=== PATIENT | male | born 2000 | race Hispanic/Latino ===

== ENCOUNTER 2024-04-16 13:21 | Emergency (ER) | payer BC ==
[~2024-04-16] VITALS: Ht 172.7 cm; Wt 90.7 kg
[2024-04-16] MEDS: ONDANSETRON HCL INJ 2MG/ML 2ML 2 MG/ML VIAL IV STA (15:27)
[2024-04-16] MEDS: FAMOTIDINE 20 MG/2 ML VIAL IV STA (15:27)
[2024-04-16] MEDS: SODIUM CHLORIDE 0.9% 1000ML 1,000 ML IV SCH (15:28)
[2024-04-16] MEDS: KETOROLAC TROMETHAMINE 30 MG/ML VIAL IV STA (15:28)
[2024-04-16 15:37] VITALS: PULSE 55; RESP 18; TEMP 98.2; O2SAT 98
[2024-04-16] MEDS ORDERED: IOPAMIDOL 370 MG/ML 100 ML INFUS..BTL INJ ONE (15:52)
[2024-04-16] MEDS ORDERED: PANTOPRAZOLE SO40 MG PO (19:04)
[2024-04-16] MEDS ORDERED: FAMOTIDINE40 MG PO (19:07)
[2024-04-16] MEDS ORDERED: ONDANSETRON ODT4 MG PO (19:56)
== END 2024-04-16 19:26 | disposition home or self-care (01) ==
LOC: FSED 13:59
DX: R10.11 Right upper quadrant pain (principal); R10.13 Epigastric pain; K29.70 Gastritis, unspecified, without bleeding; R11.2 Nausea with vomiting, unspecified; F12.20 Cannabis dependence, uncomplicated
CPT/HCPCS: 74177; 80048; 80076; 81003; 85025; 96374; 96375; 99284; J1885; J2405; J7030; Q9967